=== PATIENT | male | born 1980 | race Caucasian/White ===

== ENCOUNTER 2018-02-27 09:28 | Emergency (ER) | payer MEDICAID ==
[~2018-02-27] VITALS: Ht 182.9 cm; Wt 102.3 kg
[~2018-02-27 09:28] MED LIST: BAC10T PO; CARI350T PO; IBUP-1574 PO; IBUP-1984 PO
[2018-02-27 09:58] LABS: BASOPHILS % (AUTO) 0.4 % (0-1); EOSINOPHILS # (AUTO) 0.2 X10'3 (0-0.9); EOSINOPHILS % (AUTO) 2.3 % (0-6); HEMATOCRIT 47.1 % (42.0-52.0); HEMOGLOBIN 16.4 g/dl (14.0-17.9); LYMPHOCYTES # (AUTO) 3.4 X10'3 (1.1-4.8); MEAN CORPUSCULAR HEMOGLOBIN 34.9 PG (27.0-31.0); MEAN CORPUSCULAR HGB CONC 34.9 % (33.0-36.5); MEAN CORPUSCULAR VOLUME 99.9 FL (78-98); MEAN PLATELET VOLUME 7.5 FL (7.4-10.4); MONOCYTES # (AUTO) 0.8 X10'3 (0-0.9); MONOCYTES % (AUTO) 8.8 % (2-12); NEUTROPHILS # (AUTO) 5.1 X10'3 (1.8-7.7); NEUTROPHILS % (AUTO) 53.5 % (42-75); PLATELET COUNT 244 X10'3 (140-440); RED BLOOD COUNT 4.71 X10'6 (4.70-6.10); RED CELL DISTRIBUTION WIDTH 13.6 % (11.5-14.5); WHITE BLOOD COUNT 9.6 X10'3 (4.5-11.0)
[2018-02-27 09:59] LABS: CLARITY,URINE CLEAR (Clear); COLOR,URINE YELLOW (Yellow); GLUCOSE, URINE NEGATIVE (Neg); KETONES,URINE NEGATIVE (Neg); LEUKOCYTE ESTERASE ,URINE NEGATIVE (Neg); NITRITES, URINE NEGATIVE (Neg); OCCULT BLOOD,URINE NEGATIVE (Neg); PH,URINE 5.5 (4.8-8.0); PROTEIN,URINE NEGATIVE (Neg); UROBILINOGEN,URINE 0.2 E.U/dL (0.2-1.0)
[2018-02-27 10:07] LABS: PROTHROMBIN TIME 10.1 SECONDS (9.0-12.0)
[2018-02-27 10:08] LABS: UA COLLECTION TYPE VOIDED
[2018-02-27 10:13] LABS: ALANINE AMINOTRANSFERASE 72 U/L (12-78); ALBUMIN 3.9 G/DL (3.4-5.0); ALBUMIN/GLOBULIN RATIO 1.1 (1.1-1.5); ALKALINE PHOSPHATASE 50 IU/L (46-116); ANION GAP 9 (8-16); ASPARTATE AMINO TRANSFERASE 24 U/L (10-37); BILIRUBIN,TOTAL 0.6 MG/DL (0.1-1.0); BLOOD UREA NITROGEN 13 MG/DL (7-18); BUN/CREATININE RATIO 11.1 (5.4-32.0); CALCIUM 8.7 MG/DL (8.5-10.1); CHLORIDE 106 MMOL/L (99-107); CREATININE 1.17 MG/DL (0.60-1.10); GLUCOSE 112 MG/DL (70-104); POTASSIUM 4.1 MMOL/L (3.5-5.1); SODIUM 142 MMOL/L (135-145); TOTAL CARBON DIOXIDE 26.9 MMOL/L (24-32); TOTAL PROTEIN 7.6 G/DL (6.4-8.2); eGFR 71 ML/MIN
[2018-02-27] MEDS ORDERED: ONDA4TAB9 SL (10:23)
[2018-02-27 10:40] VITALS: BP 131/70
== END 2018-02-27 10:42 | disposition home or self-care (01) ==
LOC: ER 09:28
DX: K52.9 Noninfective gastroenteritis and colitis, unspecified (principal); G89.29 Other chronic pain; Z79.899 Other long term (current) drug therapy
CPT/HCPCS: 36415; 80053; 81003; 85025; 85610; 99284

== ENCOUNTER → 2021-08-30 | Emergency (ER) | payer MEDICAID ==
[~2021-08-30] VITALS: Ht 182.9 cm; Wt 110.5 kg
[2021-08-30 10:38] VITALS: BP 117/75
== END | disposition left against medical advice (07) ==
LOC: ER 10:34
DX: M25.562 Pain in left knee (principal); Z53.21 Procedure and treatment not carried out due to patient leaving prior to being seen by health care provider
CPT/HCPCS: 73564; 99283

== ENCOUNTER 2024-01-02 17:24 | Emergency (ER) | payer MEDICAID ==
[~2024-01-02] VITALS: Ht 182.9 cm; Wt 104.5 kg
[2024-01-02 17:37] VITALS: TEMP 97.8
[2024-01-02 19:07] LABS: BASOPHILS % (AUTO) 0.5 % (0-1); EOSINOPHILS # (AUTO) 0.2 X10'3 (0-0.9); EOSINOPHILS % (AUTO) 2.1 % (0-6); HEMATOCRIT 49.4 % (42.0-52.0); LYMPHOCYTES % (AUTO) 38.3 % (21-51); MEAN CORPUSCULAR HEMOGLOBIN 34.1 PG (27.0-31.0); MEAN CORPUSCULAR HGB CONC 34.5 g/dL (33.0-36.5); MEAN CORPUSCULAR VOLUME 98.8 FL (78-98); MEAN PLATELET VOLUME 7.9 FL (7.4-10.4); MONOCYTES # (AUTO) 0.9 X10'3 (0-0.9); MONOCYTES % (AUTO) 8.9 % (2-12); NEUTROPHILS # (AUTO) 5.3 X10'3 (1.8-7.7); NEUTROPHILS % (AUTO) 50.2 % (42-75); PLATELET COUNT 255 X10'3 (140-440); RED BLOOD COUNT 4.99 X10'6 (4.70-6.10); RED CELL DISTRIBUTION WIDTH 13.5 % (11.5-14.5); WHITE BLOOD COUNT 10.5 X10'3 (4.5-11.0)
[2024-01-02 19:15] VITALS: BP 131/85; PULSE 87; RESP 16; O2SAT 96
[2024-01-02 19:21] LABS: ALANINE AMINOTRANSFERASE 49 U/L (12-78); ALBUMIN 4.2 G/DL (3.4-5.0); ALBUMIN/GLOBULIN RATIO 1.1 (1.1-1.5); ALKALINE PHOSPHATASE 54 IU/L (46-116); ANION GAP 9 (8-16); ASPARTATE AMINO TRANSFERASE 14 U/L (10-37); BILIRUBIN,TOTAL 0.6 MG/DL (0.1-1.0); BLOOD UREA NITROGEN 14 MG/DL (7-18); BUN/CREATININE RATIO 12.3 (10.0-20.0); CALCIUM 9.6 MG/DL (8.5-10.1); CHLORIDE 104 MMOL/L (99-107); CREATININE 1.14 MG/DL (0.60-1.10); GLUCOSE 177 MG/DL (70-104); POTASSIUM 3.7 MMOL/L (3.5-5.1); SODIUM 140 MMOL/L (135-145); TOTAL CARBON DIOXIDE 27.1 MMOL/L (24-32); TOTAL PROTEIN 8.2 G/DL (6.4-8.2); eCRCL 93 ML/MIN; eGFR 70 ML/MIN
== END 2024-01-02 19:47 | disposition home or self-care (01) ==
LOC: ER 17:24
DX: E11.65 Type 2 diabetes mellitus with hyperglycemia (principal); R42 Dizziness and giddiness; Z79.899 Other long term (current) drug therapy; Z79.2 Long term (current) use of antibiotics
CPT/HCPCS: 36415; 80053; 82948; 85025; 99283

== ENCOUNTER 2024-03-16 07:19 | Outpatient (CLI) | payer MEDICAID | END 2024-03-16 23:59 | disposition home or self-care (01) | LOC: MRI 07:19 | PROVIDERS: ATTEND Physician Assistant | DX: M51.36 Other intervertebral disc degeneration, lumbar region (principal); M47.817 Spondylosis without myelopathy or radiculopathy, lumbosacral region; M48.07 Spinal stenosis, lumbosacral region; M51.27 Other intervertebral disc displacement, lumbosacral region; M47.816 Spondylosis without myelopathy or radiculopathy, lumbar region; M46.1 Sacroiliitis, not elsewhere classified | CPT/HCPCS: 72148 ==

== ENCOUNTER 2025-02-16 10:56 | Emergency (ER) | payer MEDICAID ==
[~2025-02-16] VITALS: Ht 182.9 cm; Wt 104.5 kg
[2025-02-16 11:38] LABS: LEUKOCYTE ESTERASE ,URINE NEGATIVE (Neg); NITRITES, URINE NEGATIVE (Neg); OCCULT BLOOD,URINE NEGATIVE (Neg)
[2025-02-16 11:38] LABS: MEAN PLATELET VOLUME 7.5 FL (7.4-10.4); RED CELL DISTRIBUTION WIDTH 13.4 % (11.5-14.5)
[2025-02-16 11:39] LABS: UA COLLECTION TYPE CLN CATCH MIDSTREAM
--- NOTE | 2025-02-16 11:40 | Physician Documentation ---
History of Present Illness Chief Complaint: Abdominal Pain Stated Complaint: ABDOMINAL PAIN X3 DAYS Time Seen by MD: 11:19 OK to notify your PCP?: Yes Primary Medical Doctor: MARLON DE GUZMAN IN [facility] HPI 44-year-old male presenting with abdominal pain that has been ongoing for the past 3-4 days. He states that it is intermittent and will come and go. It is sharp and located around his epigastrium and radiates up into his chest. He states that he does have a history of GERD however this feels slightly different. Currently he has only some discomfort and no significant pain however states when the pain does occur it is very uncomfortable and significant. He otherwise denies any nausea, vomiting, constipation, diarrhea or any other associated symptoms. He states that there is no relation to food or anything that he does. Medication Reconciliation Allergies: Coded Allergies: No Known Allergies (Unverified , 02/27/18) Scheduled Baclofen* (Lioresal*), 10 MG PO HS, (Reported) Carisoprodol* (Soma*), 350 MG PO TID Ibuprofen (Ibuprofen), 800 MG PO Q6H Scheduled PRN Ibuprofen* (Motrin*), 400 MG PO Q4H PRN for pain, (Reported) Past Medical History Past Medical History: GERD, Chronic Back Pain Past Surgical History: no surgical history Alcohol Use: None Drug Use: none Lives with: Family Lives In: Home Review of Systems All Other Systems at this time: Reviewed and Negative Physical Exam Vital Signs: Temperature: 97.4, Source: Temporal, Heart Rate: 83, Respiratory Rate: 14, BP: 127/89, Pulse Oximetry: 91, Weight: 104.550 Oxygen Flow Rate: 0 Physical Exam I have reviewed the triage vitals. CONST: Well developed and well nourished. In no acute distress HENT: Head Atraumatic EYES: Pupils are equal, round and reactive to light. Normal conjunctiva NECK: Normal range of motion. Supple. CARDIO: Normal rate and regular rhythm. No murmurs, rubs, or gallops. S1, S2. PULM/CHEST: No respiratory distress. Lungs clear to auscultation. No wheeze ABD: Soft and nontender. Nondistended. Bowel sounds normal. No guarding. : Exam deferred MSK: No edema. No deformity. NEURO: Alert and oriented to person, place and time. Moving all extremities SKIN: Warm and dry. PSYCH: Normal mood and affect. Good eye contact. Progress Results/Orders Results/Orders Orders - CRISTINA PEÑA MD Urinalysis, Cult If Indicated (02/16/25 11:08) Cbc/Diff (02/16/25 11:08) BMP (02/16/25 11:08) Lipase (02/16/25 11:08) CMP (02/16/25 11:08) Vital Signs 02/16/25 02/16/25 02/16/25 11:07 11:30 11:31 Temp 97.4 Pulse 93 83 Resp 16 14 B/P (MAP) 135/78 127/89 (102) Pulse Ox 96 91 O2 Flow Rate 0 0 Laboratory Tests Test 02/16/25 11:25 02/16/25 11:30 Urine Comment CBC Comment Chemistry Comments EKG/XRAY/CT/US/VASC/MRI EKG : Additional Comment EKG as interpreted by ED MD indicating normal sinus rhythm with a rate of 83 beats per minute, no ischemia, normal axis CT : Impression CLINICAL INFORMATION: Epigastric abdominal pain. TECHNIQUE: Axial CT images of the abdomen and pelvis were obtained after the uneventful administration of 100 mL Omnipaque 300 IV contrast. Coronal and sagittal reformatted images were obtained, reviewed, and stored. All CT scans at this medical facility are performed using dose modulation techniques as appropriate to a performed exam including the following: Automated exposure control was utilized; adjustment of the MA and/or KV according to patient size; and use of iterative reconstruction technique. CTDIvol = 30.14 mGy DLP = 1808.5 mGy-cm COMPARISON: None FINDINGS: Lung bases: There is reticulation in the right lower lobe with small cysts, possible fibrotic changes, with areas of mild dependent atelectasis in both lungs. There is volume loss in the right lung with associated mediastinal shift to the right. Liver: Hepatic steatosis. Liver is enlarged, measuring up to 21.5 cm in craniocaudal dimension at approximately the mid clavicular line. Biliary: No calcified gallstones or biliary ductal dilatation. Spleen: Unremarkable. Pancreas: Unremarkable. No inflammatory changes, ductal dilatation, or mass identified. Adrenal glands: Unremarkable. No mass. Kidneys: No hydronephrosis or mass. Aorta/Vascular: No aneurysm or significant calcification. Retroperitoneum: No mass or lymphadenopathy. Bowel/mesentery: No small bowel obstruction. No free air or free fluid. Appendix is not visualized. Scattered colonic diverticula without adjacent inflammatory changes to suggest diverticulitis. Pelvic organs: Grossly unremarkable. Bladder: Unremarkable. No mass. Abdominal wall: Small fat containing umbilical hernia. Bones: No acute fracture or focal intraosseous lesion. IMPRESSION: 1. Scattered colonic diverticula without adjacent inflammatory changes to suggest diverticulitis. 2. Hepatomegaly and hepatic steatosis. 3. Additional nonacute findings as described above. Medical Decision Making Additional Comments 44-year-old male presenting with abdominal pain secondary to acute diverticulitis. His lab work is unremarkable. CT of the abdomen and pelvis does indicate diverticulitis with no abscess. His symptoms are pretty mild his vitals are stable. I believe he is stable and safe for outpatient treatment. I advised the patient on a clear liquid diet for the next couple of days and then advancing as tolerated. I will also prescribe him Augmentin for 10 days and advised him to take the medication as prescribed. Monitor symptoms for improvement and resolution and return to the ED with any acutely worsening symptoms. Also follow up with the primary care physician in the next 1-2 weeks as needed. Departure Disposition: 01 HOME / SELF CARE / HOMELESS Impression: Primary Impression: Diverticulitis Condition: Improved Referrals: NO PRIMARY CARE PROVIDER (PCP) Prescriptions Amox Tr/Potassium Clavulanate 875/125 MG (Augmentin 875/125 MG) 875 Mg-125 Mg Tablet 1 TAB PO Q12H for 10 Days, #20 TAB Prov: CRISTINA PEÑA MD 02/16/25 Signature Scribe Signature: 1 Attestation: 1 CRISTINA PEÑA MD Feb 16, 2025 11:40
[2025-02-16 11:43] LABS: MUCUS STRANDS FEW /LPF (Neg); SQUAMOUS EPITHELIAL CELL,UR FEW /LPF (FEW)
--- NOTE | 2025-02-16 11:48 | ELECTROCARDIOGRAPH REPORT ---
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 Oliver London Measurements Intervals [place] Rate: 83 P: 49 ND: 187 QRS: 34 QRSD: 93 T: 50 QT: 355 QTc: 418 Interpretive Statements Sinus rhythm Abnormal R-wave progression, early transition Electronically Signed On 02-25-2025 20:10:[address] Oliver London Please click the below link to view image of tracing.
[2025-02-16 11:52] LABS: CREATININE 1.04 MG/DL (0.60-1.10); TOTAL CARBON DIOXIDE 23.6 MMOL/L (24-32); eCRCL 101 ML/MIN; eGFR 78 ML/MIN
[2025-02-16] MEDS: normal saline 1000ml 1,000 ML IV ONE (11:55)
[2025-02-16] MEDS ORDERED: iohexol 300mg/ml 100ml inj. ONE (12:34)
--- NOTE | 2025-02-16 13:30 | RADIOLOGY REPORT ---
CLINICAL INFORMATION: Epigastric abdominal pain. TECHNIQUE: Axial CT images of the abdomen and pelvis were obtained after the uneventful administratio n of 100 mL Omnipaque 300 IV contrast. Coronal and sagittal reformatted images were obtained, reviewe d, and stored. All CT scans at this medical facility are performed using dose modulation techniques a s appropriate to a performed exam including the following: Automated exposure control was utilized; a djustment of the MA and/or KV according to patient size; and use of iterative reconstruction techniqu e. CTDIvol = 30.14 mGy DLP = 1808.5 mGy-cm COMPARISON: None FINDINGS: Lung bases: There is reticulation in the right lower lobe with small cysts, possible fibrotic changes , with areas of mild dependent atelectasis in both lungs. There is volume loss in the right lung with associated mediastinal shift to the right. Liver: Hepatic steatosis. Liver is enlarged, measuring up to 21.5 cm in craniocaudal dimension at danielle roximately the mid clavicular line. Biliary: No calcified gallstones or biliary ductal dilatation. Spleen: Unremarkable. Pancreas: Unremarkable. No inflammatory changes, ductal dilatation, or mass identified. Adrenal glands: Unremarkable. No mass. Kidneys: No hydronephrosis or mass. Aorta/Vascular: No aneurysm or significant calcification. Retroperitoneum: No mass or lymphadenopathy. Bowel/mesentery: No small bowel obstruction. No free air or free fluid. Appendix is not visualized. S cattered colonic diverticula without adjacent inflammatory changes to suggest diverticulitis. Pelvic organs: Grossly unremarkable. Bladder: Unremarkable. No mass. Abdominal wall: Small fat containing umbilical hernia. Bones: No acute fracture or focal intraosseous lesion. IMPRESSION: 1. Scattered colonic diverticula without adjacent inflammatory changes to suggest diverticulitis. 2. Hepatomegaly and hepatic steatosis. 3. Additional nonacute findings as described above.
[2025-02-16] MEDS ORDERED: AMOX-580 PO (13:44)
[2025-02-16 13:55] VITALS: BP 132/90; PULSE 78; RESP 12; TEMP 98.5; O2SAT 95
== END 2025-02-16 13:57 | disposition home or self-care (01) ==
LOC: ER 10:56
DX: K57.30 Diverticulosis of large intestine without perforation or abscess without bleeding (principal); K21.9 Gastro-esophageal reflux disease without esophagitis; Z79.899 Other long term (current) drug therapy
CPT/HCPCS: 36415; 74177; 80053; 81001; 83690; 84484; 85025; 93005; 96360; 96361; 99285; J7030; Q9967

== ENCOUNTER 2025-02-25 07:52 | Emergency (ER) | payer MEDICAID ==
[~2025-02-25] VITALS: Ht 188 cm; Wt 105.2 kg
[~2025-02-25 07:52] MED LIST changes: +AMOX-580 PO
[2025-02-25 07:55] VITALS: TEMP 98.6
[2025-02-25 09:32] LABS: MEAN PLATELET VOLUME 7.7 FL (7.4-10.4); RED CELL DISTRIBUTION WIDTH 13.3 % (11.5-14.5)
--- NOTE | 2025-02-25 09:43 | Physician Documentation ---
History of Present Illness Chief Complaint: Abdominal Pain Stated Complaint: UPPER ABD PAIN Time Seen by MD: 08:52 Primary Medical Doctor: MARLON DE GUZMAN IN [facility] Mode of Arrival: POV HPI 56-year-old male returns to the ED with ongoing abdominal pain just superior to his umbilicus. Patient does have a history of abdominal surgery and an incision in line with the area of pain. A proximally one week ago patient was diagnosed with diverticulitis via CT. However his labs at the time were unremarkable. He has taken almost all of his Augmentin as directed. And has pain that has persist however it has not worsened. He states that the there are no alleviating or exacerbating factors except sometimes the pain is worse when eating Denies any fevers, Day of Onset: Feb 25, 2025 Medication Reconciliation Allergies: Coded Allergies: No Known Allergies (Unverified , 02/27/18) Scheduled Amox Tr/Potassium Clavulanate 875/125 MG (Augmentin 875/125 MG), 1 TAB PO Q12H Baclofen* (Lioresal*), 10 MG PO HS, (Reported) Carisoprodol* (Soma*), 350 MG PO TID Ibuprofen (Ibuprofen), 800 MG PO Q6H Scheduled PRN Ibuprofen* (Motrin*), 400 MG PO Q4H PRN for pain, (Reported) Past Medical History Past Medical History: GERD, Chronic Back Pain Past Surgical History: no surgical history Alcohol Use: None Drug Use: none Lives with: Family Lives In: Home Review of Systems All Other Systems at this time: Reviewed and Negative ROS As stated above in the HPI, otherwise all systems are reviewed and negative. Physical Exam Vital Signs: Temperature: 98.6, Source: Oral, Heart Rate: 73, Respiratory Rate: 16, BP: 133/92, Pulse Oximetry: 96, Weight: 105.200 Oxygen Flow Rate: 0 Physical Exam General: Alert, no apparent distress. Cardiovascular: Regular rate and rhythm, no murmurs. Gastrointestinal: Soft, tender to the superior aspect of the umbilicus ,bowel sounds present Psychiatric: Normal mood and affect. Progress Results/Orders Results/Orders Orders - JUANITO MANJARREZ LPN RN HOSPICE Urinalysis, Cult If Indicated (02/25/25 09:14) BMP (02/25/25 09:14) Lipase (02/25/25 09:14) CMP (02/25/25 09:14) Ultrasound Of Abdomen (02/25/25 09:15) Completed Orders - JUANITO MANJARREZ NP Cbc/Diff (02/25/25 09:14) Vital Signs 02/25/25 02/25/25 02/25/25 07:55 08:13 09:30 Temp 98.6 Pulse 76 73 Resp 16 16 16 B/P (MAP) 130/78 133/92 (106) Pulse Ox 97 96 O2 Flow Rate 0 Laboratory Tests Test 02/25/25 09:24 White Blood Count 8.5 Red Blood Count 4.85 Hemoglobin 16.4 Hematocrit 47.4 Mean Corpuscular Volume 97.6 Mean Corpuscular Hemoglobin 33.7 H Mean Corpuscular Hemoglobin Concent 34.6 Red Cell Distribution Width 13.3 Platelet Count 239 Mean Platelet Volume 7.7 Neutrophils (%) (Auto) 49.7 Lymphocytes (%) (Auto) 38.4 Monocytes (%) (Auto) 8.5 Eosinophils (%) (Auto) 2.8 Basophils (%) (Auto) 0.6 Neutrophils # (Auto) 4.2 Lymphocytes # (Auto) 3.3 Monocytes # (Auto) 0.7 Eosinophils # (Auto) 0.2 Basophils # (Auto) 0.1 CBC Comment Chemistry Comments Medical Decision Making Findings This patient is abdominal ultrasound came back negative other than a fatty liver. Patient is adamant that he is non drinker. Patient has a slight elevation in lipase.. He has no white count which would indicate worsening diverticulitis. This is also consistent with his previous laboratory values whe n he was diagnosed with diverticulitis. I initially wanted to rule out umbilical hernia secondary to his previous incision which I did. Addition he had no signs of cholelithiasis or cholecystitis. Take this patient needs an outpatient evaluation and potential scope. No further evaluation is warranted at this time Differential Dx:Considerations: Include: AAA, Angina/RI, Aortic dissection, Appendicitis, Bowel obstruction, Cholangitis, Cholelithasis, Constipation, Diverticular disease, Esophageal rupture, Esophagitis, Gastritis/PUD, Gastroenteritis, GI hemorrhage, Hernia, Hepatitis, Inflammatory BD, Ischemic b owel, Pancreatitis, Porphyria, Testicular torsion, Trauma, intraabdominal, Urinary obstruction, Urinary tract infection, Urolithiasis, Other Departure Disposition: 01 HOME / SELF CARE / HOMELESS Impression: Primary Impression: Abdominal pain Discharge Instructions: Abdominal Pain (Nonspecific) Additional Instructions: Instructed continue to take he your antibiotics for your previously diagnosed diverticulitis. I do recommend following up with the outpatient evaluation and potentially a GI specialist referral Referrals: NO PRIMARY CARE PROVIDER (PCP) Signature Scribe Signature: b Attestation: Scribed for Juanito Manjarrez Deckhand Engineer by Juanito Redmond NP . 02/25/25 10:06 JUANITO MANJARREZ NP Feb 25, 2025 09:43
[2025-02-25 09:51] LABS: CREATININE 1.06 MG/DL (0.60-1.10); TOTAL CARBON DIOXIDE 24.6 MMOL/L (24-32); eCRCL 104 ML/MIN; eGFR 76 ML/MIN
--- NOTE | 2025-02-25 10:08 | RADIOLOGY REPORT ---
INDICATION: abd pain TECHNIQUE: Multiple real-time sonographic images were obtained of the right upper quadrant. COMPARISON: None FINDINGS: The liver demonstrates increased echotexture without focal mass lesions. The liver measure s 20 cm. There is no intrahepatic or extrahepatic ductal dilatation. The common duct measures 0.4 cm. The gallbladder is without evidence of stone or sludge. The gallbladder wall measures 0.2 cm and is w ithin normal limits. The right kidney measures 11.8 cm. The right kidney is normal in contour, size, and shape. The echoge nicity is normal. There is no hydronephrosis. The pancreas is not well visualized due to overlying bowel gas. IMPRESSION: Hepatic steatosis. Hepatomegaly.
[2025-02-25 10:24] VITALS: BP 124/85; PULSE 76; RESP 16; O2SAT 96
== END 2025-02-25 10:25 | disposition home or self-care (01) ==
LOC: ER 07:53
DX: K21.9 Gastro-esophageal reflux disease without esophagitis (principal); Z79.899 Other long term (current) drug therapy
CPT/HCPCS: 36415; 76700; 80053; 83690; 85025; 99284

== ENCOUNTER 2025-07-08 07:39 | Emergency (ER) | payer MEDICAID ==
[~2025-07-08] VITALS: Ht 182.9 cm; Wt 103.0 kg
[~2025-07-08 07:39] MED LIST changes: -AMOX-580 PO
[2025-07-08 07:42] VITALS: BP 126/79; PULSE 83; RESP 18; TEMP 97.8; O2SAT 97
[2025-07-08 08:08] LABS: LEUKOCYTE ESTERASE ,URINE NEGATIVE (Neg); NITRITES, URINE NEGATIVE (Neg); OCCULT BLOOD,URINE NEGATIVE (Neg)
[2025-07-08 08:14] LABS: UA COLLECTION TYPE VOIDED
[2025-07-08 08:21] LABS: MEAN PLATELET VOLUME 7.6 FL (7.4-10.4); RED CELL DISTRIBUTION WIDTH 13.2 % (11.5-14.5)
--- NOTE | 2025-07-08 08:21 | Physician Documentation ---
History of Present Illness CC: PENNY OG MD ~ Chief Complaint: Hyperglycemia Stated Complaint: HIGH BLOOD SUGAR Time Seen by MD: 09:06 Primary Medical Doctor: MARLON DE GUZMAN IN [facility] This is a 45-year-old male with history of type 2 diabetes diagnosed one and half year ago presents to the ER with a chief complaint of consistently high blood sugars in the range of 400s yesterday and today. However blood sugar measurement in the ER was 170 and patient denies any symptoms other than fatigue. He denies shortness of breath, pain, polyuria, polydipsia. His last A1c was 7.4 in outpatient setting. Possible wrong readings of blood sugar at home. He takes metformin 500 b.i.d. and long-acting insulin 30 units twice d aily. Medication Reconciliation Allergies: Coded Allergies: No Known Allergies (Unverified , 07/08/25) Scheduled Baclofen* (Lioresal*), 10 MG PO HS, (Reported) Carisoprodol* (Soma*), 350 MG PO TID Ibuprofen (Ibuprofen), 800 MG PO Q6H Scheduled PRN Ibuprofen* (Motrin*), 400 MG PO Q4H PRN for pain, (Reported) Past Medical History Past Medical History: GERD, Chronic Back Pain Past Surgical History: no surgical history Alcohol Use: None Drug Use: none Lives with: Family Lives In: Home Review of Systems Constitutional Constitutional: No fever, chills, dizziness, weakness, weight gain or loss Eyes: No pain, erythema, discharge, blurring of vision ENT: No sore throat, epistaxis, tinnitus Cardiovascular: No palpitations, syncope, lower extremity edema, paroxysmal nocturnal dyspnea Respiratory: No hemoptysis Gastrointestinal: Normal appetite. No nausea, vomiting, diarrhea, constipation, hematemesis, abdominal pain, bloating, melena or fresh blood Genitourinary: No frequency, urgency, nocturia, hematuria or dysuria Musculoskeletal: No arthralgias or myalgias Integumentary: No change in skin, hair, nails. No swelling, bruising, abrasions Neurologic: No headache, neck pain, numbness or tingling of the extremities, weakness Psychiatric: No delusions, depression, loss of interest in normal activity or change in sleep pattern, hallucinations, suicidal ideations Endocrine: No fatigue, weakness, polydipsia, polyuria, change in appetite, heat or cold intolerance, sweating, dry skin Hematological: No bleeding, petechiae, bruising Allergies: No asthma or urticaria Physical Exam Vital Signs: Temperature: 97.8, Source: Oral, Heart Rate: 83, Respiratory Rate: 18, BP: 126/79, Pulse Oximetry: 97, Weight: 103.000 Oxygen Flow Rate: 0 Physical Exam General: Awake and Alert, no acute distress. HEENT: Conjunctiva pink, Sclera clear, Mucus Membranes moist Neck: Supple without masses and tenderness. Resp: Unlabored. Equal breath sounds bilaterally. Heart: Regular rhythm, normal S1 and S2, no rub, murmur or gallop, muffled heart sounds. Abdomen: Soft and non tender no organomegaly. Normal bowel sounds x4 quadrant normoactive. No guarding or rigidity. Extremities: Normal ROM, no swelling, nontender. No cyanosis,clubbing or edema. PROCESS DEVELOPMENT CHEMIST: No gross motor or sensory abnormalities. Skin: Warm and Dry. Progress Results/Orders Results/Orders Completed Orders - AZLPENNY OGRE MD Urinalysis, Cult If Indicated (07/08/25 07:56) Cbc/Diff (07/08/25 07:56) CMP (07/08/25 07:56) Hgb A1c (07/08/25 08:11) Vital Signs 07/08/25 07:42 Temp 97.8 Pulse 83 Resp 18 B/P (MAP) 126/79 Pulse Ox 97 O2 Flow Rate 0 Laboratory Tests Test 07/08/25 07:44 07/08/25 08:00 07/08/25 08:11 Glucometer 170 H Urine Specimen Description Voided Urine Color Yellow Urine Clarity Clear Urine pH 6.0 Urine Specific Beattie 1.020 Urine Protein Negative Urine Glucose (UA) Negative Urine Ketones Negative Urine Occult Blood Negative Urine Nitrite Negative Urine Bilirubin Negative Urine Urobilinogen 0.2 Urine Leukocyte Esterase Negative Urine Culture Indicated Not ind Volume Urine Centrifuged 10 ml Urine Comment White Blood Count 8.2 Red Blood Count 4.91 Hemoglobin 16.8 Hematocrit 48.4 Mean Corpuscular Volume 98.5 H Mean Corpuscular Hemoglobin 34.3 H Mean Corpuscular Hemoglobin Concent 34.8 Red Cell Distribution Width 13.2 Platelet Count 234 Mean Platelet Volume 7.6 Neutrophils (%) (Auto) 44.3 Lymphocytes (%) (Auto) 42.3 Monocytes (%) (Auto) 9.3 Eosinophils (%) (Auto) 3.4 Basophils (%) (Auto) 0.7 Neutrophils # (Auto) 3.6 Lymphocytes # (Auto) 3.5 Monocytes # (Auto) 0.8 Eosinophils # (Auto) 0.3 Basophils # (Auto) 0.1 CBC Comment Sodium Level 138 Potassium Level 4.1 Chloride Level 104 Carbon Dioxide Level 26.3 Anion Gap 8 Blood Urea Nitrogen 18 Creatinine 1.09 Estimated GFR/1.73 m2 73 BUN/Creatinine Ratio 16.5 Glucose Level 199 H Hemoglobin A1c 7.7 H Calcium Level 8.5 Total Bilirubin 1.0 Aspartate Amino Transf (AST/SGOT) 36 Alanine Aminotransferase (ALT/SGPT) 93 H Alkaline Phosphatase 57 Total Protein 8.1 Albumin 4.1 Globulin 4.0 Albumin/Globulin Ratio 1.0 L Chemistry Comments Medical Decision Making Additional information obtaine: other Findings Repeat blood sugar showed blood sugar of 199 and A1c was 7.7. Likely wrong readings at home. Patient was discharged with diabetes education, diet control and need for exercise and follow up with the PCP, benefits of Dexcom Differential Dx:Considerations: Include: Appendicitis, Bowel obstruction, Cholecysitis, Dehydration, Diabetes, Diabetic coma, DKA, Electrolyte abnormality, Encephalopathy, Gastritis, Hepatitis, Hyperglycemia, Hyperosmolar state, Hypoglycemia, Pancreatitis, Pyelonephritis, UTI, Other Departure Disposition: 01 HOME / SELF CARE / HOMELESS Impression: Primary Impression: Diabetes mellitus Discharge Instructions: Hyperglycemia, [id number], Diabetes, Sick Day Management Referrals: NO PRIMARY CARE PROVIDER (PCP) Education Educated: Patient Educated regarding: need for follow up Additional Comment Seen with PA/AUTO SERVICER The patient was seen with the medical case worker, I have reviewed the residents note and agree with the note as written and with the assesment and plan. I have examined the patient and supervised all aspects of the patients care. The patients pulse oximetry was interpreted as normal and adequate. Signature Scribe Signature: No scribe Attestation: PGY2 resident attestation: Patient was seen and examined with attending physician Dr. kalee Delarosa MD PGY 2 internal medicine resident The note accurately reflects work and decisions made by me.Penny Og MD 07/09/25 13:38 JORGE ANGEL, RES Jul 08, 2025 08:21 OHLFS,PENNY Mills MD Jul 09, 2025 13:39
[2025-07-08 08:38] LABS: CREATININE 1.09 MG/DL (0.60-1.10); TOTAL CARBON DIOXIDE 26.3 MMOL/L (24-32); eCRCL 95 ML/MIN; eGFR 73 ML/MIN
== END 2025-07-08 10:26 | disposition home or self-care (01) ==
LOC: ER 07:39
DX: E11.65 Type 2 diabetes mellitus with hyperglycemia (principal); G89.29 Other chronic pain; K21.9 Gastro-esophageal reflux disease without esophagitis; Z79.4 Long term (current) use of insulin; Z79.899 Other long term (current) drug therapy
CPT/HCPCS: 36415; 80053; 81003; 82948; 83036; 85025; 99283